=== PATIENT | male | born 1975 | race Caucasian/White ===

== ENCOUNTER 2020-01-18 06:08 | Day surgery (SDC) | payer OTHER ==
[~2020-01-18] VITALS: Ht 185.4 cm; Wt 120.5 kg
[2020-01-18] MEDS ORDERED: SODIUM CHLORIDE 0.9% 1,000 ML IV SCH (06:16)
[2020-01-18] MEDS ORDERED: METO25TA35 PO (06:32)
[2020-01-18 06:33] VITALS: BP 141/99
[2020-01-18] MEDS ORDERED: ADENOSINE 6 MG/2 ML ONE (07:32)
[2020-01-18] MEDS ORDERED: FENTANYL PF 100 MCG/2ML ONE (07:32)
[2020-01-18] MEDS ORDERED: ISOPROTERENOL 0.2MG/ML, 5ML ONE (07:32)
[2020-01-18] MEDS ORDERED: LIDOCAINE 2%, 20ML ONE (07:32)
[2020-01-18] MEDS ORDERED: MIDAZOLAM 1 MG/ML, 5ML ONE (07:32)
[2020-01-18] MEDS ORDERED: ACETAMINOPHEN 325 MG TABLET PO PRN (10:00)
== END 2020-01-18 14:15 | disposition home or self-care (01) ==
LOC: CACL 06:08
PROVIDERS: ATTEND Internal Medicine Cardiovascular Disease
DX: I47.1 Supraventricular tachycardia (principal); E66.9 Obesity, unspecified; Z68.35 Body mass index [BMI] 35.0-35.9, adult; Z79.899 Other long term (current) drug therapy; Z87.891 Personal history of nicotine dependence
CPT/HCPCS: 93613; 93621; 93623; 93653; 99156; 99157; C1730; C1766; C1894; C2630; J0153; J2250; J3010